=== PATIENT | female | born 2005 | race Two or more races ===

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

== ENCOUNTER 2023-01-07 11:03 | Outpatient (CLI) | payer OTHER | END 2023-01-07 12:18 | disposition home or self-care (01) | LOC: PRENATAL 11:03 | PROVIDERS: ATTEND Obstetrics & Gynecology Maternal & Fetal Medicine | DX: O35.9XX0 Maternal care for (suspected) fetal abnormality and damage, unspecified, not applicable or unspecified (principal); O35.3XX0 Maternal care for (suspected) damage to fetus from viral disease in mother, not applicable or unspecified; O34.219 Maternal care for unspecified type scar from previous cesarean delivery; Z3A.27 27 weeks gestation of pregnancy ==

== ENCOUNTER 2023-02-21 15:05 | Outpatient (CLI) | payer OTHER | END 2023-02-21 17:22 | disposition home or self-care (01) | LOC: PRENATAL 15:05 | PROVIDERS: ATTEND Obstetrics & Gynecology Maternal & Fetal Medicine | DX: O26.849 Uterine size-date discrepancy, unspecified trimester (principal); O36.8199 Decreased fetal movements, unspecified trimester, other fetus; O34.219 Maternal care for unspecified type scar from previous cesarean delivery; Z3A.33 33 weeks gestation of pregnancy ==

== ENCOUNTER 2023-03-30 06:59 | Inpatient (IN) | payer OTHER ==
[~2023-03-30] VITALS: Ht 147.3 cm; Wt 3.2 kg
[~2023-03-30 06:59] MED LIST changes: +PLAQUENIL PO
[2023-03-31] MEDS ORDERED: HYDROXYCHLOROQ200 MG PO (07:59)
== END 2023-04-02 13:25 | disposition home or self-care (01) | DRG 788 ==
LOC: O/R 06:59 → OB/GYN 06:59
PROVIDERS: ADMIT Obstetrics & Gynecology; ATTEND Obstetrics & Gynecology
PROC: 4A1HXCZ Monitoring of Products of Conception, Cardiac Rate, External Approach (ICD-10-PCS; 2023-03-30)
PROC: 10D00Z1 Extraction of Products of Conception, Low, Open Approach (ICD-10-PCS; principal; 2023-03-30 09:30)
DX: O34.211 Maternal care for low transverse scar from previous cesarean delivery (principal); Z3A.39 39 weeks gestation of pregnancy; Z37.0 Single live birth; Z20.822 Contact with and (suspected) exposure to COVID-19

== ENCOUNTER 2023-11-30 20:53 | Emergency (ER) | payer OTHER ==
[~2023-11-30] VITALS: Ht 147.3 cm; Wt 39.5 kg
[~2023-11-30 20:53] MED LIST changes: +HYDROXYCHLOROQ200 MG PO
[2023-11-30 23:11] LABS: HEMATOCRIT 37.5 % (36.0-45.00); HEMOGLOBIN 12.7 g/dL (12.0-15.00); MEAN CELL VOLUME 88.7 fL (80.00-100.00); MEAN CORPUSCULAR HGB CONC 33.8 g/dl (32.0-36.0); PLATELET COUNT 377 K/uL (150-450); RED BLOOD COUNT 4.23 M/uL (4.00-6.00); RED CELL DISTRIBUTION WIDTH 12.8 % (11.5-14.5)
[2023-11-30 23:49] LABS: PH,URINE 6.5 (5.0-8.0); URINE APPEARANCE Cloudy; URINE BILIRRUBIN Negative (NEGATIVE); URINE BLOOD Small; URINE COLOR Yellow; URINE GLUCOSE Negative (NEGATIVE); URINE LEUKOCYTE Moderate; URINE NITRATE Positive; URINE PROTEIN 30 (NEGATIVE)
[2023-11-30 23:53] LABS: URINE EPITHELIAL CELLS 37.5 uL (0.0-38.8); URINE RBC 28.5 uL (0.0-20.8); URINE WBC 834.8 uL (0.0-23.2)
[2023-12-01 00:11] LABS: URINE BACTERIA > 9821.2 uL (0.0-1933)
[2023-12-01] MEDS ORDERED: CEFTRIAXONE SODIUM 1,000 MG VIAL IM STA (02:05)
[2023-12-01] MEDS ORDERED: CEPHALEXIN500 MG PO (02:25)
[2023-12-01] MEDS ORDERED: PYRIDIUM DS200 MG PO (02:25)
== END 2023-12-01 02:47 ==
LOC: ER 20:54
DX: N39.0 Urinary tract infection, site not specified (principal); R30.0 Dysuria

== ENCOUNTER 2024-02-28 08:29 | Outpatient (CLI) | payer OTHER ==
[~2024-02-28 08:29] MED LIST changes: +CEPHALEXIN500 MG PO; +CIPRO500 MG PO; +PYRIDIUM DS200 MG PO; +URETRON D-S TAB1 TAB PO
== END 2024-02-28 08:31 | disposition home or self-care (01) ==
LOC: PRENATAL 08:29
PROVIDERS: ATTEND Obstetrics & Gynecology Maternal & Fetal Medicine
DX: O36.80X0 Pregnancy with inconclusive fetal viability, not applicable or unspecified (principal); O34.219 Maternal care for unspecified type scar from previous cesarean delivery; Z36.82 Encounter for antenatal screening for nuchal translucency; Z3A.13 13 weeks gestation of pregnancy

== ENCOUNTER 2024-04-09 11:21 | Outpatient (CLI) | payer OTHER | END 2024-04-09 11:23 | disposition home or self-care (01) | LOC: PRENATAL 11:21 | PROVIDERS: ATTEND Obstetrics & Gynecology Maternal & Fetal Medicine | DX: O35.9XX0 Maternal care for (suspected) fetal abnormality and damage, unspecified, not applicable or unspecified (principal); O35.3XX0 Maternal care for (suspected) damage to fetus from viral disease in mother, not applicable or unspecified; O44.02 Complete placenta previa NOS or without hemorrhage, second trimester; O34.219 Maternal care for unspecified type scar from previous cesarean delivery; Z3A.19 19 weeks gestation of pregnancy ==

== ENCOUNTER 2024-04-29 15:59 | Outpatient (CLI) | payer OTHER ==
[2024-04-29 15:13] VITALS: BP 90/52
[2024-04-29] MEDS ORDERED: RINGERS SOLUTION,LACTATED 1,000 ML IV SCH (16:15)
[2024-04-29 16:27] LABS: HEMATOCRIT 30.9 % (36.0-45.00); HEMOGLOBIN 10.8 g/dL (12.0-15.00); MEAN CELL VOLUME 94.7 fL (80.00-100.00); MEAN CORPUSCULAR HEMOGLOBIN 33.1 pg (27.00-32.0); MEAN CORPUSCULAR HGB CONC 34.9 g/dl (32.0-36.0); PLATELET COUNT 304 K/uL (150-450); RED BLOOD COUNT 3.26 M/uL (4.00-6.00); RED CELL DISTRIBUTION WIDTH 12.8 % (11.5-14.5)
[2024-04-29 16:33] LABS: PH,URINE 6.5 (5.0-8.0); URINE APPEARANCE Clear; URINE BILIRRUBIN Negative (NEGATIVE); URINE BLOOD Negative; URINE COLOR Yellow; URINE KETONE Negative (NEGATIVE); URINE LEUKOCYTE Large; URINE NITRATE Positive; URINE PROTEIN Negative (NEGATIVE); URINE UROBILINOGEN 0.2 E.U./dl
[2024-04-29 16:37] LABS: URINE EPITHELIAL CELLS 26.1 uL (0.0-38.8); URINE WBC 290.1 uL (0.0-23.2)
[2024-04-29 17:00] LABS: URINE BACTERIA > 9821.5 uL (0.0-1933); URINE CAST 0.15 uL (0.0-1.40); URINE GLUCOSE 500 MG/DL (NEGATIVE)
[2024-04-29] MEDS ORDERED: CEFAZOLIN SODIUM 1,000 MG VIAL IV STA (18:19)
[2024-04-29 18:56] VITALS: BP 101/63
[2024-04-29 23:41] VITALS: BP 95/60
[2024-04-30] MEDS ORDERED: CEFAZOLIN SODIUM 1,000 MG VIAL IV SCH
[2024-04-30] MEDS ORDERED: TERBUTALINE SULFATE 1 MG/ML AMPUL ONE (00:51)
[2024-04-30] MEDS ORDERED: TERBUTALINE SULFATE 1 MG/ML AMPUL SUBCUTANEO ONE (01:15)
[2024-04-30 03:23] VITALS: BP 96/56
[2024-04-30 06:11] VITALS: BP 97/54; O2SAT 100
[2024-04-30 10:41] VITALS: BP 97/54
== END 2024-04-30 10:54 | disposition home or self-care (01) ==
LOC: OBS/DEL 15:59
PROVIDERS: Obstetrics & Gynecology; ATTEND Obstetrics & Gynecology
DX: O23.42 Unspecified infection of urinary tract in pregnancy, second trimester (principal); N39.0 Urinary tract infection, site not specified; R10.2 Pelvic and perineal pain; Z3A.22 22 weeks gestation of pregnancy

== ENCOUNTER 2024-06-06 19:28 | Inpatient (IN) | payer OTHER ==
[~2024-06-06] VITALS: Ht 147.3 cm; Wt 48.5 kg
[2024-06-06 18:30] VITALS: BP 96/61
[2024-06-06 20:05] LABS: HEMATOCRIT 31.5 % (36.0-45.00); HEMOGLOBIN 10.9 g/dL (12.0-15.00); MEAN CORPUSCULAR HEMOGLOBIN 33.1 pg (27.00-32.0); MEAN CORPUSCULAR HGB CONC 34.5 g/dl (32.0-36.0); PLATELET COUNT 259 K/uL (150-450); RED BLOOD COUNT 3.28 M/uL (4.00-6.00); RED CELL DISTRIBUTION WIDTH 13.1 % (11.5-14.5)
[2024-06-06] MEDS ORDERED: PRENATAL TABLE1 EAC1 PO (20:34)
[2024-06-06] MEDS ORDERED: CEFAZOLIN SODIUM 1,000 MG VIAL IV SCH (21:00)
[2024-06-06] MEDS ORDERED: RINGERS SOLUTION,LACTATED 1,000 ML IV SCH (23:30)
[2024-06-06 23:41] VITALS: BP 109/73
[2024-06-07] VITALS (8 sets, daily range): BP systolic 85–99; BP diastolic 46–64; O2SAT 98–100
[2024-06-07] MEDS ORDERED: TERBUTALINE SULFATE 1 MG/ML AMPUL SUBCUTANEO SCH (00:30)
[2024-06-07] MEDS ORDERED: MORPHINE SULFATE 4 MG/ML CARTRIDGE IV ONE (13:00)
[2024-06-07] MEDS ORDERED: NIFEDIPINE 30 MG TAB.SA.OSM PO NR (13:05)
[2024-06-07] MEDS ORDERED: NIFEDIPINE 30 MG TAB.SA.OSM PO SCH (21:00)
[2024-06-08 03:24] VITALS: BP 93/52
[2024-06-08 06:50] VITALS: BP 100/58; O2SAT 98
[2024-06-08] MEDS ORDERED: BETAMETHASONE ACETATE,SOD PHOS 30 MG/5 ML ML IM SCH (11:00)
[2024-06-08 11:19] VITALS: BP 90/51
[2024-06-08 12:44] VITALS: BP 95/58
[2024-06-08 16:00] VITALS: BP 94/60
[2024-06-09] VITALS (8 sets, daily range): BP systolic 84–123; BP diastolic 48–66; O2SAT 98–99
[2024-06-09] MEDS ORDERED: MORPHINE SULFATE 4 MG/ML VIAL IV ONE (01:45)
[2024-06-09] MEDS ORDERED: ACETAMINOPHEN 500 MG GEL..CAP PO NR (16:45)
[2024-06-10 04:23] VITALS: BP 94/46
[2024-06-10 07:30] VITALS: BP 90/39
[2024-06-10] MEDS ORDERED: NIFEDIPINE 30 MG TAB.SA.OSM PO SCH (09:00)
[2024-06-10 11:41] VITALS: BP 88/47
[2024-06-10 15:10] VITALS: BP 91/50
[2024-06-10 19:19] VITALS: BP 86/50
[2024-06-10] MEDS ORDERED: ACETAMINOPHEN 500 MG GEL..CAP PO PRN (20:00)
[2024-06-11] VITALS: BP 94/55
[2024-06-11 04:06] VITALS: BP 92/53
[2024-06-11 07:24] VITALS: BP 106/57; O2SAT 99
[2024-06-11 10:17] VITALS: BP 104/65
[2024-06-11 14:27] VITALS: BP 95/55
[2024-06-11 16:25] VITALS: BP 90/55
[2024-06-12] VITALS: BP 99/63
[2024-06-12 08:37] VITALS: BP 106/60
[2024-06-12 16:00] VITALS: BP 111/65
[2024-06-12] MEDS ORDERED: MORPHINE SULFATE 4 MG/ML VIAL IV STA (21:59)
[2024-06-13 00:09] VITALS: BP 100/63
[2024-06-13 04:00] VITALS: BP 93/55
[2024-06-13 07:26] VITALS: BP 100/55
[2024-06-13 10:03] VITALS: BP 101/68
[2024-06-13 16:00] VITALS: BP 96/55
[2024-06-13] MEDS ORDERED: hydrOXYzine PAMOATE 50 MG CAPSULE PO SCH (21:00)
[2024-06-14] VITALS: BP 99/62
[2024-06-14 08:00] VITALS: BP 96/58
[2024-06-14 16:00] VITALS: BP 98/63
[2024-06-15 02:06] VITALS: BP 95/60
[2024-06-15 06:04] VITALS: BP 96/55
[2024-06-15 08:51] VITALS: BP 89/70
== END 2024-06-15 11:14 | disposition home or self-care (01) | DRG 832 ==
LOC: OBS/DEL 19:28 → OB/GYN 06-07 12:57 → LDR 06-07 12:57 → OBS/DEL 06-07 12:57 → OB/GYN 06-08 10:08
PROVIDERS: ADMIT Obstetrics & Gynecology; ATTEND Obstetrics & Gynecology
PROC: 4A1HXCZ Monitoring of Products of Conception, Cardiac Rate, External Approach (ICD-10-PCS; principal; 2024-06-07)
PROC: BY4CZZZ Ultrasonography of Second Trimester, Single Fetus (ICD-10-PCS; 2024-06-07)
PROC: BU4CZZZ Ultrasonography of Uterus and Ovaries (ICD-10-PCS; 2024-06-07)
DX: O60.02 Preterm labor without delivery, second trimester (principal); N39.0 Urinary tract infection, site not specified; O23.42 Unspecified infection of urinary tract in pregnancy, second trimester; Z3A.27 27 weeks gestation of pregnancy; O26.852 Spotting complicating pregnancy, second trimester; O26.842 Uterine size-date discrepancy, second trimester; O36.8120 Decreased fetal movements, second trimester, not applicable or unspecified; Z20.822 Contact with and (suspected) exposure to COVID-19; B96.20 Unspecified Escherichia coli [E. coli] as the cause of diseases classified elsewhere

== ENCOUNTER 2024-06-27 19:59 | Inpatient (IN) | payer OTHER ==
[~2024-06-27] VITALS: Ht 121.9 cm; Wt 49.4 kg
[2024-06-27 18:07] VITALS: BP 94/60
[~2024-06-27 19:59] MED LIST changes: +PRENATAL TABLE1 EAC1 PO
[2024-06-27] MEDS ORDERED: BETAMETHASONE ACETATE,SOD PHOS 30 MG/5 ML ML IM ONE (21:15)
[2024-06-27] MEDS ORDERED: PRENATAL TABLE1 EAC1 (21:48)
[2024-06-27] MEDS ORDERED: MACRODANTIN100 M1 PO (21:48)
[2024-06-27] MEDS ORDERED: NIFEDIPINE20 MG PO (21:49)
[2024-06-27] MEDS ORDERED: hydrOXYzine PAMOATE 50 MG CAPSULE PO ONE (22:00)
[2024-06-27] MEDS ORDERED: RINGERS SOLUTION,LACTATED 1,000 ML IV SCH (22:00)
[2024-06-27 22:16] LABS: URINE APPEARANCE Cloudy; URINE BILIRRUBIN Negative (NEGATIVE); URINE BLOOD Negative; URINE COLOR Yellow; URINE GLUCOSE Negative (NEGATIVE); URINE KETONE 15 (NEGATIVE); URINE LEUKOCYTE Trace; URINE NITRATE Negative; URINE PROTEIN Negative (NEGATIVE)
[2024-06-27 22:17] LABS: URINE BACTERIA 1016.6 uL (0.0-1933); URINE EPITHELIAL CELLS 82.3 uL (0.0-38.8)
[2024-06-27 22:18] LABS: HEMATOCRIT 31.2 % (36.0-45.00); HEMOGLOBIN 10.8 g/dL (12.0-15.00); MEAN CELL VOLUME 94.9 fL (80.00-100.00); MEAN CORPUSCULAR HEMOGLOBIN 32.9 pg (27.00-32.0); MEAN CORPUSCULAR HGB CONC 34.7 g/dl (32.0-36.0); PLATELET COUNT 227 K/uL (150-450); RED BLOOD COUNT 3.29 M/uL (4.00-6.00); RED CELL DISTRIBUTION WIDTH 13.6 % (11.5-14.5)
[2024-06-27 22:36] LABS: URINE CAST 0.45 uL (0.0-1.40)
[2024-06-27 22:41] LABS: INR 0.97; PARTIAL THROMBOPLASTIN TIME 30.8 SECONDS (22.0-34.0)
[2024-06-27] MEDS ORDERED: hydrOXYzine PAMOATE 50 MG CAPSULE PO PRN (22:45)
[2024-06-27 23:42] LABS: PROTHROMBIN TIME 10.6 SECONDS (9.0-11.5)
[2024-06-27 23:50] VITALS: BP 93/60
[2024-06-28] VITALS (7 sets, daily range): BP systolic 90–97; BP diastolic 44–60; O2SAT 98
[2024-06-28] MEDS ORDERED: NIFEDIPINE 30 MG TAB.SA.OSM PO SCH (09:00)
[2024-06-28] MEDS ORDERED: PNV,CALCIUM 72/IRON/FOLIC ACID 1 TAB TABLET PO SCH (09:00)
[2024-06-29 00:39] VITALS: BP 88/41
[2024-06-29 03:12] VITALS: BP 95/56
[2024-06-29 06:11] VITALS: BP 93/56; O2SAT 97
[2024-06-29 11:55] VITALS: BP 92/58
[2024-06-29 16:58] VITALS: BP 94/50
[2024-06-29] MEDS ORDERED: hydrOXYzine PAMOATE 50 MG CAPSULE PO SCH (21:00)
[2024-06-29] MEDS ORDERED: MORPHINE SULFATE 4 MG/ML VIAL IV STA (21:53)
[2024-06-30] VITALS: BP 91/60
[2024-06-30 08:44] VITALS: BP 105/65
[2024-06-30] MEDS ORDERED: NITROFURANTOIN MONOHYD/M-CRYST 100 MG CAPSULE PO SCH (11:13)
[2024-06-30 13:06] LABS: PH,URINE 7.5 (5.0-8.0); URINE APPEARANCE Cloudy; URINE BILIRRUBIN Negative (NEGATIVE); URINE BLOOD Negative; URINE COLOR Yellow; URINE EPITHELIAL CELLS 16.5 uL (0.0-38.8); URINE GLUCOSE Negative (NEGATIVE); URINE KETONE Negative (NEGATIVE); URINE LEUKOCYTE Large; URINE NITRATE Negative; URINE PROTEIN Negative (NEGATIVE); URINE UROBILINOGEN 0.2 E.U./dl; URINE WBC 189.1 uL (0.0-23.2)
[2024-06-30 13:24] LABS: URINE BACTERIA > 5821.5 uL (0.0-1933); URINE CAST 0.15 uL (0.0-1.40); URINE RBC 1.3 uL (0.0-20.8)
[2024-06-30 16:00] VITALS: BP 95/55
[2024-07-01 00:30] VITALS: BP 95/60
[2024-07-01 08:02] VITALS: BP 100/63
[2024-07-01 16:30] VITALS: BP 100/63
[2024-07-01] MEDS ORDERED: MORPHINE SULFATE 4 MG/ML VIAL IV STA (21:26)
[2024-07-02 00:30] VITALS: BP 106/66
[2024-07-02 07:52] VITALS: BP 89/50
[2024-07-02 16:00] VITALS: BP 96/56
[2024-07-03] VITALS: BP 99/66
[2024-07-03 12:06] VITALS: BP 106/57
[2024-07-03 16:01] VITALS: BP 100/61
[2024-07-04 00:56] VITALS: BP 97/63
[2024-07-04 08:21] VITALS: BP 100/50
[2024-07-04 16:00] VITALS: BP 100/60
[2024-07-04] MEDS ORDERED: MORPHINE SULFATE 4 MG/ML VIAL IV STA (22:15)
[2024-07-04] MEDS ORDERED: MORPHINE SULFATE 4 MG/ML CARTRIDGE IV NR (22:16)
[2024-07-05 01:08] VITALS: BP 100/60
[2024-07-05 09:00] VITALS: BP 101/58
[2024-07-05] MEDS ORDERED: NIFEDIPINE 30 MG TAB.SA.OSM PO SCH (09:00)
[2024-07-05 16:32] VITALS: BP 87/55
[2024-07-06 01:30] VITALS: BP 100/55
[2024-07-06 09:00] VITALS: BP 99/56
[2024-07-06 16:23] VITALS: BP 97/59
[2024-07-07] VITALS: BP 90/60
[2024-07-07 08:50] VITALS: BP 100/60
[2024-07-07 17:13] VITALS: BP 100/60
[2024-07-08] VITALS (8 sets, daily range): BP systolic 90–108; BP diastolic 51–66
[2024-07-09] VITALS (8 sets, daily range): BP systolic 90–110; BP diastolic 52–67; O2SAT 97
[2024-07-09] MEDS ORDERED: MORPHINE SULFATE 4 MG/ML VIAL IV ONE (08:00)
[2024-07-10 02:54] VITALS: BP 103/61
[2024-07-10 06:16] VITALS: BP 93/62; O2SAT 98
[2024-07-10 12:00] VITALS: BP 100/67
[2024-07-10 17:45] VITALS: BP 107/66
[2024-07-11 01:23] VITALS: BP 100/60
[2024-07-11 08:00] VITALS: BP 93/54
[2024-07-12 02:55] VITALS: BP 90/55
[2024-07-12 09:16] VITALS: BP 95/65
[2024-07-12 16:00] VITALS: BP 102/61
[2024-07-13 01:33] VITALS: BP 95/60
[2024-07-13 09:04] VITALS: BP 104/60
== END 2024-07-13 09:58 | disposition home or self-care (01) | DRG 832 ==
LOC: OBS/DEL 19:59 → LDR 06-28 19:55 → OB/GYN 06-28 19:55
PROVIDERS: ADMIT Obstetrics & Gynecology; ATTEND Obstetrics & Gynecology
PROC: BY4FZZZ Ultrasonography of Third Trimester, Single Fetus (ICD-10-PCS; principal; 2024-06-28)
PROC: BU4CZZZ Ultrasonography of Uterus and Ovaries (ICD-10-PCS; 2024-06-28)
PROC: 4A1HXCZ Monitoring of Products of Conception, Cardiac Rate, External Approach (ICD-10-PCS; 2024-06-28)
PROC: BT43ZZZ Ultrasonography of Bilateral Kidneys (ICD-10-PCS; 2024-07-02)
PROC: BY4FZZZ Ultrasonography of Third Trimester, Single Fetus (ICD-10-PCS; 2024-07-03)
PROC: BU4CZZZ Ultrasonography of Uterus and Ovaries (ICD-10-PCS; 2024-07-03)
PROC: BY4FZZZ Ultrasonography of Third Trimester, Single Fetus (ICD-10-PCS; 2024-07-10)
PROC: BU4CZZZ Ultrasonography of Uterus and Ovaries (ICD-10-PCS; 2024-07-10)
DX: O60.03 Preterm labor without delivery, third trimester (principal); N39.0 Urinary tract infection, site not specified; O23.43 Unspecified infection of urinary tract in pregnancy, third trimester; O26.843 Uterine size-date discrepancy, third trimester; O36.8130 Decreased fetal movements, third trimester, not applicable or unspecified; O26.853 Spotting complicating pregnancy, third trimester; Z3A.30 30 weeks gestation of pregnancy; O26.893 Other specified pregnancy related conditions, third trimester; R10.2 Pelvic and perineal pain; N20.0 Calculus of kidney; O46.8X3 Other antepartum hemorrhage, third trimester; B96.20 Unspecified Escherichia coli [E. coli] as the cause of diseases classified elsewhere

== ENCOUNTER 2024-07-27 13:58 | Outpatient (CLI) | payer OTHER ==
[~2024-07-27 13:58] MED LIST changes: +MACRODANTIN100 M1 PO; +NIFEDIPINE20 MG PO; +PRENATAL TABLE1 EAC1
== END 2024-07-27 14:00 | disposition home or self-care (01) ==
LOC: PRENATAL 13:58
PROVIDERS: ATTEND Obstetrics & Gynecology Maternal & Fetal Medicine
DX: O26.849 Uterine size-date discrepancy, unspecified trimester (principal); O36.8199 Decreased fetal movements, unspecified trimester, other fetus; Z3A.34 34 weeks gestation of pregnancy

== ENCOUNTER 2024-08-06 13:36 | Inpatient (IN) | payer OTHER ==
[~2024-08-06] VITALS: Ht 147.3 cm; Wt 52.6 kg
[2024-08-06 13:57] LABS: HEMATOCRIT 36.1 % (36.0-45.00); HEMOGLOBIN 12.1 g/dL (12.0-15.00); MEAN CELL VOLUME 95.5 fL (80.00-100.00); MEAN CORPUSCULAR HEMOGLOBIN 32.1 pg (27.00-32.0); MEAN CORPUSCULAR HGB CONC 33.6 g/dl (32.0-36.0); PLATELET COUNT 224 K/uL (150-450); RED BLOOD COUNT 3.78 M/uL (4.00-6.00); RED CELL DISTRIBUTION WIDTH 14.4 % (11.5-14.5)
[2024-08-06 13:58] LABS: PH,URINE 7.5 (5.0-8.0); URINE APPEARANCE Clear; URINE BILIRRUBIN Negative (NEGATIVE); URINE BLOOD Negative; URINE COLOR Yellow; URINE GLUCOSE Negative (NEGATIVE); URINE KETONE Negative (NEGATIVE); URINE LEUKOCYTE Negative; URINE NITRATE Negative; URINE PROTEIN Negative (NEGATIVE)
[2024-08-06 14:01] LABS: URINE BACTERIA 190.7 uL (0.0-1933); URINE EPITHELIAL CELLS 28.1 uL (0.0-38.8); URINE WBC 2.8 uL (0.0-23.2)
[2024-08-06 14:07] LABS: URINE RBC 0.8 uL (0.0-20.8)
[2024-08-06 14:15] LABS: INR 0.99; PARTIAL THROMBOPLASTIN TIME 30.2 SECONDS (22.0-34.0); PROTHROMBIN TIME 10.8 SECONDS (9.0-11.5)
[2024-08-13 06:57] VITALS: BP 101/69
[2024-08-13] MEDS ORDERED: ERYTHROMYCIN BASE OPHT 1GM EACH TUBE OP ONE (11:15)
[2024-08-13] MEDS ORDERED: CEFAZOLIN SODIUM 1,000 MG VIAL IV ONE (11:15)
[2024-08-13] MEDS ORDERED: OXYTOCIN 10 UNITS/ML VIAL IV ONE (11:15)
[2024-08-13] MEDS ORDERED: PROMETHAZINE HCL 50 MG/ML AMPUL IM PRN (12:00)
[2024-08-13] MEDS ORDERED: MEPERIDINE HCL/PF 50 MG/ML VIAL IM PRN (12:00)
[2024-08-13] MEDS ORDERED: MORPHINE SULFATE 4 MG/ML VIAL IV ONE (13:05)
[2024-08-13 14:08] VITALS: BP 92/60
[2024-08-13 16:29] VITALS: BP 100/53
[2024-08-13 18:32] LABS: HEMATOCRIT 34.2 % (36.0-45.00); HEMOGLOBIN 11.4 g/dL (12.0-15.00); MEAN CELL VOLUME 95.3 fL (80.00-100.00); MEAN CORPUSCULAR HEMOGLOBIN 31.9 pg (27.00-32.0); MEAN CORPUSCULAR HGB CONC 33.5 g/dl (32.0-36.0); PLATELET COUNT 221 K/uL (150-450); RED BLOOD COUNT 3.59 M/uL (4.00-6.00); RED CELL DISTRIBUTION WIDTH 14.2 % (11.5-14.5)
[2024-08-13 23:43] VITALS: BP 106/64
[2024-08-14 07:36] VITALS: BP 119/75
[2024-08-14] MEDS ORDERED: OxyCODONE HCL/APAP UD (PERCOCET) PO PRN (08:00)
[2024-08-14] MEDS ORDERED: DOCUSATE SODIUM 100MG CAP PO SCH (09:00)
[2024-08-14] MEDS ORDERED: SIMETHICONE 125 MG CAPSULE PO SCH (09:00)
[2024-08-14] MEDS ORDERED: PNV,CALCIUM 72/IRON/FOLIC ACID 1 TAB TABLET PO SCH (09:00)
[2024-08-14 15:53] VITALS: BP 117/80
[2024-08-14 23:42] VITALS: BP 103/66
[2024-08-15 08:42] VITALS: BP 102/70
[2024-08-15 15:56] VITALS: BP 92/60
[2024-08-15 20:10] VITALS: BP 94/65
[2024-08-16 00:07] VITALS: BP 103/68
[2024-08-16 08:00] VITALS: BP 94/64
== END 2024-08-16 15:25 | disposition home or self-care (01) | DRG 785 ==
LOC: O/R 08-13 06:36 → OB/GYN 08-13 06:36 → O/R 08-13 09:04 → OB/GYN 08-13 11:32
PROVIDERS: ADMIT Obstetrics & Gynecology; ATTEND Obstetrics & Gynecology
PROC: 0UB70ZZ Excision of Bilateral Fallopian Tubes, Open Approach (ICD-10-PCS; 2024-08-13)
PROC: 4A1HXCZ Monitoring of Products of Conception, Cardiac Rate, External Approach (ICD-10-PCS; 2024-08-13)
PROC: 10D00Z1 Extraction of Products of Conception, Low, Open Approach (ICD-10-PCS; principal; 2024-08-13 07:00)
DX: O34.211 Maternal care for low transverse scar from previous cesarean delivery (principal); Z3A.38 38 weeks gestation of pregnancy; Z37.0 Single live birth; Z20.822 Contact with and (suspected) exposure to COVID-19; Z30.2 Encounter for sterilization